=== PATIENT | male | born 1975 | race Caucasian/White ===

== ENCOUNTER → 2018-09-14 | Outpatient (CLI) | payer OTHER | LOC: BMCIMAGING 16:11 | PROVIDERS: ATTEND Family Medicine | DX: S82.432A Displaced oblique fracture of shaft of left fibula, initial encounter for closed fracture (principal) ==

== ENCOUNTER → 2018-09-22 | Outpatient (CLI) | payer OTHER | LOC: BMCIMAGING 13:55 | PROVIDERS: ATTEND Podiatrist Foot & Ankle Surgery | DX: S82.832D Other fracture of upper and lower end of left fibula, subsequent encounter for closed fracture with routine healing (principal) ==

== ENCOUNTER → 2018-10-05 | Outpatient (CLI) | payer OTHER | LOC: BMCIMAGING 09:15 | PROVIDERS: ATTEND Podiatrist Foot & Ankle Surgery | DX: S82.832D Other fracture of upper and lower end of left fibula, subsequent encounter for closed fracture with routine healing (principal) ==

== ENCOUNTER 2018-10-10 18:04 | Emergency (ER) | payer OTHER ==
--- NOTE | 2018-10-10 18:39 | EDPHY ---
HPI/HX/ROS/PE/MDM Narrative: CHIEF COMPLAINT:Fall, wrist injury HPI: The patient is a 43-year-old male with history of recent surgery for fibular fracture. The patient was trying to walk down stairs using crutches earlier this evening when he fell, resulting in FOOSH of left wrist. He complains of pain, deformity to left wrist. No other injuries. No numbness. REVIEW OF SYSTEMS: Aside from elements discussed in the HPI, a comprehensive 10-point review of systems was reviewed and is negative. PMH:Fibula fracture SOCIAL HISTORY:Denies alcohol or drug abuse. PHYSICAL EXAM: General:Patient is alert, in no acute distress. Skin: Normal color. No rash. Warm and dry. Extremities: Left wrist - obvious deformity. Light touch sensation and motor function is preserved in the axillary, median, radial and ulnar nerve distributions. There is a 2+ radial pulse with brisk cap refill. Neuro: Oriented x3. Normal motor function. Normal sensory function. ED Course: 43 y/o male presents with obvious deformity to the left wrist after a FOOSH while walking down stairs with crutches earlier today. Plan for x-ray. X-ray of the left wrist shows comminuted, displaced intraarticular fracture of the distal radius and displaced fracture of the ulnar styloid. Plan to splint and reduce under standard ED protocol. Hematoma block performed. Patient will be placed in finger traps prior to reduction. 19:50 Reduction and splinting of displaced left wrist fracture. Neurovascular exam intact pre-procedure. Given hematoma block for pain. The left , comminuted, displaced intraarticular fracture of the distal radius and displaced fracture of the ulnar styloid was reduced using finger-trap traction and dorsal pressure. Reassessed post-procedure. Neurovascular status intact, normal motor and sensory exam. Exam indicated reduction. Patient placed in sugar-tong splint per standard ED protocol. A orthoglass sugar tong splint was applied to the left wrist by the tech following my reduction. After application of the splint I re-examined the patient. The splint was adequately immobilizing the joint and distal to the splint the patient's circulation and sensation was intact. Plan to discharge patient home in good condition with referral to information technology specialist. Prescription for Percocet provided for severe pain. Follow up and return precautions discussed. He is comfortable with this plan. - Data Points Imaging Results: Imaging Impressions Wrist X-Ray 10/10/18 18:16 Impression: Comminuted, displaced intraarticular fracture of the distal radius and displaced fracture of the ulnar styloid. Imaging: I viewed and interpreted images myself General Time Seen by Provider: 10/10/18 18:17 Initial Vital Signs: Initial Vital Signs Temperature (C) 37.0 C 10/10/18 18:13 Heart Rate 90 10/10/18 18:13 Respiratory Rate 16 10/10/18 18:13 Blood Pressure 157/101 H 10/10/18 18:13 O2 Sat (%) 96 10/10/18 18:13 O2 Delivery Mode Room Air Allergies/Adverse Reactions: Penicillins Allergy (Verified 10/10/18 18:13) Home Medications: Medication Instructions Recorded Oxycodone HCl 10/10/18 oxyCODONE/APAP 5/325 [Percocet 1 - 2 tab PO Q6H PRN #20 tab 10/10/18 5/325 (*)] Departure - Departure Disposition: Home, Routine, Self-Care Clinical Impression: Distal radius fracture, left Qualifiers: Encounter type: initial encounter Fracture type: closed Fracture morphology: other intra-articular Qualified Code(s): S52.572A - Other intraarticular fracture of lower end of left radius, initial encounter for closed fracture Fracture of ulnar styloid Qualifiers: Encounter type: initial encounter Fracture type: closed Fracture alignment: displaced Laterality: unspecified laterality Qualified Code(s): S52.613A - Displaced fracture of unspecified ulna styloid process, initial encounter for closed fracture Condition: Good Instructions: Oxycodone/Acetaminophen (By mouth), Wrist Fracture in Adults (ED) Additional Instructions: Rest, ice, elevation. Follow up with an orthopedic surgeon within one week. Return to the emergency department for worsening pain, swelling, numbness, weakness or other concerns. Wear splint at all times until reevaluation. Take Percocet as prescribed as needed for severe pain. Referrals: Swetha Reeves MD [Primary Care Provider] - As per Instructions Jacky Li MD [Medical Doctor] - As per Instructions Prescriptions: oxyCODONE/APAP 5/325 [Percocet 5/325 (*)] 1 - 2 tab PO Q6H PRN #20 tab PRN Reason: Pain, Severe Report Scribed for: Michael Kumar Report Scribed by: Ary Esquivel Date of Report: 10/10/18 Time of Report: 20:01 Physician Review and Approval Statement: Portions of this note were transcribed by an ED scribe. I personally performed the history, physical exam, and medical decision making; and confirm the accuracy of the information in the transcribed note.
[2018-10-10 20:16] VITALS: BP 147/86
== END 2018-10-10 20:16 | disposition home or self-care (01) ==
PROC: 0PSLXZZ Reposition Left Ulna, External Approach (ICD-10-PCS; principal; 2018-10-10)
PROC: 0PSJXZZ Reposition Left Radius, External Approach (ICD-10-PCS; principal; 2018-10-10)
DX: S52.572A Other intraarticular fracture of lower end of left radius, initial encounter for closed fracture (principal); S52.613A Displaced fracture of unspecified ulna styloid process, initial encounter for closed fracture; W10.8XXA Fall (on) (from) other stairs and steps, initial encounter; Y92.008 Other place in unspecified non-institutional (private) residence as the place of occurrence of the external cause
CPT/HCPCS: A4565

== ENCOUNTER → 2018-11-03 | Outpatient (CLI) | payer OTHER | LOC: BMCIMAGING 13:49 ==

== ENCOUNTER → 2018-11-03 | Outpatient (CLI) | payer OTHER | LOC: BMCIMAGING 13:19 | PROVIDERS: ATTEND Podiatrist Foot & Ankle Surgery | DX: S52.572D Other intraarticular fracture of lower end of left radius, subsequent encounter for closed fracture with routine healing (principal); S52.613D Displaced fracture of unspecified ulna styloid process, subsequent encounter for closed fracture with routine healing ==

== ENCOUNTER → 2018-11-04 | Outpatient (CLI) | payer OTHER | DX: I82.492 Acute embolism and thrombosis of other specified deep vein of left lower extremity (principal) ==

== ENCOUNTER → 2018-11-24 | Outpatient (CLI) | payer OTHER | LOC: BMCIMAGING 14:00 | PROVIDERS: ATTEND Podiatrist Foot & Ankle Surgery | DX: S82.832D Other fracture of upper and lower end of left fibula, subsequent encounter for closed fracture with routine healing (principal) ==

== ENCOUNTER → 2018-12-01 | Outpatient (CLI) | payer OTHER | LOC: BMCIMAGING 14:53 | PROVIDERS: ATTEND Orthopaedic Surgery Hand Surgery | DX: S82.832D Other fracture of upper and lower end of left fibula, subsequent encounter for closed fracture with routine healing (principal); X58.XXXD Exposure to other specified factors, subsequent encounter ==

== ENCOUNTER → 2019-01-07 | Outpatient (CLI) | payer OTHER | LOC: BMCIMAGING 13:36 ==